=== PATIENT | male | born 2005 | race Caucasian/White ===

== ENCOUNTER 2025-06-25 19:20 | Emergency (ER) | payer SELFPAY ==
[~2025-06-25] VITALS: Ht 165.1 cm; Wt 84.0 kg
[2025-06-25 19:39] VITALS: O2SAT 99
[2025-06-25 21:54] LABS: BASOPHILS % 0.8 % (0.0-2.0); EOSINOPHILS % 2.0 % (0.0-5.0); HEMATOCRIT. 41.1 % (42.0-52.0); HEMOGLOBIN. 14.0 g/dL (14.0-18.0); LYMPHOCYTES % 29.8 % (20.0-50.0); MEAN PLATELET VOLUME 9.7 fl (7.4-10.4); MONOCYTES % 9.1 % (2.0-8.0); NEUTROPHILS % 58.3 % (40.0-76.0); PLATELET 236 x1000/uL (130-400); RED BLOOD CELL COUNT 4.47 mill/uL (4.7-6.1); RED CELL DISTRIBUTION WIDTH 12.5 % (11.6-14.6)
[2025-06-25 22:05] LABS: CREATININE 0.9 mg/dL (0.6-1.3); UREA NITROGEN BLOOD 12 mg/dL (9-23)
[2025-06-25 22:06] LABS: TROPONIN I HIGH SENSITIVITY 6 ng/L (3.0-53)
[2025-06-25 22:07] LABS: ASPARTATE AMINOTRANSFERASE 29 IU/L (<34); BILIRUBIN DIRECT < 0.1 mg/dL (<=3.0); BILIRUBIN TOTAL 0.2 mg/dL (0.1-1.0); PROTEIN TOTAL 7.2 g/dL (6.0-8.3)
[2025-06-25] MEDS ORDERED: ALBU90AE INH (22:36)
[2025-06-25] MEDS: POTASSIUM CHLORIDE 20MEQ TABLET SR PO ONE (22:57)
[2025-06-25 22:58] VITALS: BP 150/70; PULSE 84; RESP 16; TEMP 36.7; O2SAT 98
== END 2025-06-25 23:15 | disposition home or self-care (01) ==
LOC: ER 19:20
DX: R07.9 Chest pain, unspecified (principal); E87.6 Hypokalemia
CPT/HCPCS: 36415; 71045; 80048; 80076; 83880; 84484; 85025; 93005; 99285

== ENCOUNTER 2025-07-25 21:05 | Emergency (ER) | payer OTHER ==
[~2025-07-25] VITALS: Ht 167.6 cm; Wt 94.6 kg
[~2025-07-25 21:05] MED LIST: ALBU90AE INH
[2025-07-25 21:08] VITALS: O2SAT 98
[2025-07-25 21:30] VITALS: BP 128/85; PULSE 97; RESP 16; TEMP 36.9; O2SAT 99
[2025-07-25 22:15] VITALS: TEMP 98.4
[2025-07-25] MEDS: LIDOCAINE HCL 1% 20ML VIAL INFIL ONE (22:15)
[2025-07-25] MEDS: ACETAMINOPHEN 325MG TABLET PO ONE (22:15)
[2025-07-26] MEDS: BACITRACIN ZINC OINT UDPKT TOP ONE (00:15)
[2025-07-26] MEDS ORDERED: CEPH500C2 MT (00:18)
[2025-07-26] MEDS ORDERED: IBUP-1455 MT (00:18)
[2025-07-27] MEDS ORDERED: BO1 TP (18:46)
== END 2025-07-26 00:28 | disposition home or self-care (01) ==
LOC: ER 21:05
DX: S61.412A Laceration without foreign body of left hand, initial encounter (principal); X58.XXXA Exposure to other specified factors, initial encounter; Y93.89 Activity, other specified; Y92.89 Other specified places as the place of occurrence of the external cause; Y99.8 Other external cause status
CPT/HCPCS: 99283; 73130; 12002; J2003

== ENCOUNTER 2025-07-27 15:21 | Emergency (ER) | payer OTHER ==
[~2025-07-27] VITALS: Ht 175.3 cm; Wt 91.0 kg
[~2025-07-27 15:21] MED LIST changes: +CEPH500C2 MT; +IBUP-1455 MT
[2025-07-27 15:29] VITALS: BP 133/81; PULSE 96; RESP 18; TEMP 37.1; O2SAT 100; O2SAT 97
[2025-07-27] MEDS ORDERED: BO1 TP (18:46)
== END 2025-07-27 19:03 | disposition home or self-care (01) ==
LOC: ER 15:21
DX: Z48.00 Encounter for change or removal of nonsurgical wound dressing (principal)
CPT/HCPCS: 99282

== ENCOUNTER 2025-08-04 17:28 | Emergency (ER) | payer MEDICAID, OTHER ==
[~2025-08-04] VITALS: Ht 175.3 cm; Wt 95.0 kg
[~2025-08-04 17:28] MED LIST changes: +BO1 TP
[2025-08-04 17:30] VITALS: O2SAT 99
[2025-08-04 17:58] VITALS: BP 125/68; PULSE 99; RESP 14; TEMP 36.8; O2SAT 96
== END 2025-08-04 21:05 | disposition left against medical advice (07) ==
LOC: ER 17:28
DX: S61.412D Laceration without foreign body of left hand, subsequent encounter (principal); X58.XXXD Exposure to other specified factors, subsequent encounter
CPT/HCPCS: 99281